=== PATIENT | female | born 1930 | race Caucasian/White ===

== ENCOUNTER 2018-10-02 11:39 | Emergency (ER) | payer MEDICARE, OTHER ==
[~2018-10-02] VITALS: Ht 167.6 cm; Wt 59.0 kg
[2018-10-02] MEDS ORDERED: ONDANSETRON HCL INJ 2MG/ML 2ML 2 MG/ML VIAL IV STA (12:05)
[2018-10-02] MEDS ORDERED: MORPHINE SULFATE 5 MG/ML VIAL IV ONE (12:15)
[2018-10-02] MEDS ORDERED: MORPHINE SULFATE INJ 4 MG/ML INJ 1ML IV NR (12:15)
[2018-10-02 13:09] LABS: BASOPHILS % 0.5 % (0.0-1.0); EOSINOPHILS # (AUTO) 0.1 (0.0-0.4); EOSINOPHILS % 0.9 % (0.0-6.0); HEMATOCRIT 43.3 % (34.2-44.1); LYMPHOCYTES # (AUTO) 1.5 (1.0-3.2); LYMPHOCYTES % 22.2 % (18.0-39.1); MEAN CORPUSCULAR HEMOGLOBIN 30.7 pg (28-32); MEAN CORPUSCULAR HGB CONC 32.3 g/dL (31-35); MONOCYTES # (AUTO) 0.6 (0.2-0.8); MONOCYTES % 9.4 % (4.4-11.3); NEUTROPHILS # (AUTO) 4.4 (2.1-6.9); NEUTROPHILS % 66.7 % (38.7-80.0); PLATELET COUNT 281 x10e3/uL (140-360); RED BLOOD COUNT 4.56 x10e6/uL (3.6-5.1); RED CELL DISTRIBUTION WIDTH 12.2 % (11.7-14.4)
[2018-10-02 13:13] LABS: CLARITY,URINE CLEAR (CLEAR); COLOR,URINE YELLOW (YELLOW); LEUKOCYTE ESTERASE ,URINE NEGATIVE (NEGATIVE); NITRITE,URINE NEGATIVE (NEGATIVE); PROTEIN,URINE DIPSTICK NEGATIVE (NEGATIVE)
[2018-10-02 13:14] LABS: BILIRUBIN,URINE NEGATIVE (NEGATIVE); KETONES,URINE NEGATIVE (NEGATIVE); URINE UROBILINOGEN 0.2 mg/dL (0.2 - 1)
[2018-10-02 13:25] LABS: INR 0.87; PARTIAL THROMBOPLASTIN TIME 27.5 seconds (23.8-35.5); PROTHROMBIN TIME 12.3 seconds (11.9-14.5)
[2018-10-02 13:27] LABS: RBC,URINE 0-5 /HPF (0-5); WBC,URINE (MAN) 0-5 /HPF (0-5)
[2018-10-02 13:28] LABS: AMORPHOUS SEDIMENT,URINE MODERATE (FEW); BACTERIA,URINE MODERATE /HPF; EPITHELIAL CELLS,URINE RARE /LPF
[2018-10-02 13:31] LABS: ALBUMIN 3.7 g/dL (3.5-5.0); ALBUMIN/GLOBULIN RATIO 1.2 (0.8-2.0); ANION GAP 12.4 mmol/L (8-16); CALCIUM 10.8 mg/dL (8.4-10.2); CREATININE, SERUM 1.07 mg/dL (0.57-1.11); MAGNESIUM 2.3 MG/DL (1.3-2.1); POTASSIUM 4.4 mmol/L (3.5-5.1)
[2018-10-02 13:37] LABS: CREATINE KINASE MB 1.1 ng/mL (0-5.0)
[2018-10-02] MEDS ORDERED: ARICEPT5 MG PO (13:38)
[2018-10-02] MEDS ORDERED: AMLODIPINE BESYL5 MG PO (13:38)
[2018-10-02] MEDS ORDERED: ASPIR 8181 MG (13:38)
[2018-10-02] MEDS ORDERED: NAMENDA10 MG PO (13:38)
[2018-10-02] MEDS ORDERED: CALTRATE 600 W1 EACH (13:38)
[2018-10-02] MEDS ORDERED: MULTI-VITAMIN1 EACH (13:38)
[2018-10-02] MEDS ORDERED: VAYACOG CAPSUL1 EACH PO (13:38)
[2018-10-02] MEDS ORDERED: SYNTHROID50 MCG PO (13:38)
[2018-10-02] MEDS ORDERED: CRESTOR10 MG PO (13:38)
[2018-10-02] MEDS ORDERED: PLAVIX75 MG PO (13:38)
--- NOTE | 2018-10-02 14:12 | Diagnostic Imaging Report ---
EXAMINATION: Head and cervical spine CT without contrast. HISTORY: Status post fall, patient on Plavix, trauma COMPARISON: Head CT 10/15/2014 report TECHNIQUE: Multidetector axial images were obtained without contrast from the foramen magnum to the vertex and through the cervical spine. The images were reconstructed using brain and bone algorithms. Thin section brain images were reformatted into coronal and sagittal planes. Dose modulation, iterative reconstruction, and/or weight based adjustment of the mA/kV was utilized to reduce the radiation dose to as low as reasonably achievable. HEAD CT FINDINGS: Skull: No lytic or blastic lesions. No fractures. Parenchyma: Persistent periventricular and sal[place] radiata matter hypodensities, most likely nonspecific chronic microvascular ischemic changes. No mass, hemorrhage or CT evidence of acute vascular insult. Brain volume: Generalized volume loss, with particular prominence of the parietal sulci, bilateral temporal horns and bilateral hippocampal atrophy, which can be seen in patient's with Alzheimer's disease in the correct clinical setting. Ventricles: No hydrocephalus or displacement. Arteries: No density suggestive of thrombus. Dural sinuses: No abnormal density. Extra-axial spaces: No abnormal density. Foramen magnum: No mass, Chiari malformation, or basilar invagination. Sella: No obvious mass. Paranasal/mastoid sinuses: Imaged portions unremarkable. CERVICAL SPINE CT FINDINGS: Alignment:Normal alignment and lordosis. Soft tissues: Normal. Vertebrae: Normal height and density. No acute fracture, infection or neoplasm. Degenerative changes: C1-C2: Normal C2-C3: Uncovertebral and facet arthrosis. Mild right foraminal stenoses. C3-C4: Disc osteophyte formation, bilateral uncovertebral and facet arthrosis. Mild right and moderately severe left foraminal stenosis. C4-C5: Disc osteophyte formation, uncovertebral and facet arthrosis. Severe right and moderate left foraminal stenosis. C5-C6: Symmetrical left disc osteophyte, uncovertebral and facet arthrosis. Severe left and moderately severe right foraminal stenosis C6-C7: Disc osteophyte complex formation, uncovertebral arthrosis. No significant stenoses. C7-T1: Normal IMPRESSION: Head CT: 1. No acute postraumatic intracranial hemorrhage. 2. Mild chronic microvascular ischemic changes. 3. Parenchymal volume loss with mild medial temporal predominance as detailed above. Cervical spine CT: 1. No acute fractures or dislocations. 2. Chronic degenerative changes as described. Note: Acute post traumatic spinal cord, vascular or ligamentous injury cannot adequately be assessed with CT. Signed by: Dr. Belkis Jewell M.D. on 10/02/2018 2:09 PM
--- NOTE | 2018-10-02 14:13 | Diagnostic Imaging Report ---
Exam: Right hip radiographs-2 views; left hip radiographs-2 views; AP radiograph of the pelvis-single view History: Status post fall. Comparison: None. Findings: There is diffuse osteopenia. No evidence of acute fracture, malalignment, or soft tissue abnormality. Bowel gas partially obscures visualization of the sacrum. There are mild degenerative changes of bilateral hips without acute osseous abnormality. Impression: No acute radiographic abnormality. Mild bilateral hip osteoarthritis. Signed by: Dr. Oskar Alanis MD on 10/02/2018 2:09 PM
--- NOTE | 2018-10-02 14:16 | Diagnostic Imaging Report ---
EXAMINATION: CHEST SINGLE (NOT PORTABLE) INDICATION: Status post fall. COMPARISON: None FINDINGS: TUBES and LINES: None. LUNGS: Lungs are well inflated. There is no evidence of pneumonia or pulmonary edema. There is a calcified granuloma in the left lower lung. PLEURA: No pleural effusion or pneumothorax. HEART AND MEDIASTINUM: The cardiomediastinal silhouette is unremarkable. BONES AND SOFT TISSUES: No acute osseous abnormality. Degenerative changes of bilateral shoulders. Superior subluxation of bilateral humeral heads in relation to the glenoids could reflect rotator cuff pathology. UPPER ABDOMEN: No free air under the diaphragm. IMPRESSION: No acute radiographic abnormality. Signed by: Dr. Oskar Alanis MD on 10/02/2018 2:12 PM
[2018-10-02 15:09] VITALS: BP 148/62
== END 2018-10-02 15:39 | disposition home or self-care (01) ==
LOC: ER 11:39
DX: M54.5 Low back pain (principal); M25.552 Pain in left hip; M25.551 Pain in right hip; W01.0XXA Fall on same level from slipping, tripping and stumbling without subsequent striking against object, initial encounter; Y92.008 Other place in unspecified non-institutional (private) residence as the place of occurrence of the external cause; F03.90 Unspecified dementia, unspecified severity, without behavioral disturbance, psychotic disturbance, mood disturbance, and anxiety; I10 Essential (primary) hypertension; E11.9 Type 2 diabetes mellitus without complications; E03.9 Hypothyroidism, unspecified; I25.10 Atherosclerotic heart disease of native coronary artery without angina pectoris
CPT/HCPCS: 36415; 70450; 71045; 72125; 73522; 80053; 81001; 82550; 82553; 83605; 83735; 84484; 85025; 85610; 85730; 87040; 87086; 93005; 99284

== ENCOUNTER 2019-09-12 12:22 | Observation (INO) | payer MEDICARE ==
[~2019-09-12] VITALS: Ht 167.6 cm; Wt 59.0 kg
[~2019-09-12 12:22] MED LIST: AMLODIPINE BESYL5 MG PO; ARICEPT5 MG PO; ASPIR 8181 MG PO; CALTRATE 600 W1 EACH PO; CRESTOR10 MG PO; MULTI-VITAMIN1 EACH PO; NAMENDA10 MG PO; PLAVIX75 MG PO; SYNTHROID50 MCG PO; VAYACOG CAPSUL1 EACH PO
[2019-09-12] MEDS ORDERED: ENOXAPARIN SOD INJ 60 MG/0.6 ML SYR SC ONE (12:30)
[2019-09-12] MEDS ORDERED: ONDANSETRON HCL INJ 2MG/ML 2ML 2 MG/ML VIAL IV PRN ×3 (12:45→13:45)
[2019-09-12] MEDS ORDERED: NITROGLYCERIN 2% OINT 1 GM PKT TOP ONE (12:45)
[2019-09-12 12:49] LABS: BASOPHILS % 0.5 % (0.0-1.0); EOSINOPHILS # (AUTO) 0.1 (0.0-0.4); EOSINOPHILS % 1.4 % (0.0-6.0); HEMATOCRIT 39.2 % (34.2-44.1); HEMOGLOBIN 12.9 g/dL (12.0-16.0); LYMPHOCYTES # (AUTO) 1.6 (1.0-3.2); MEAN CORPUSCULAR HEMOGLOBIN 31.5 pg (28-32); MEAN CORPUSCULAR HGB CONC 32.9 g/dL (31-35); MEAN CORPUSCULAR VOLUME 95.8 fL (81-99); MONOCYTES # (AUTO) 0.6 (0.2-0.8); NEUTROPHILS # (AUTO) 4.2 (2.1-6.9); NEUTROPHILS % 63.8 % (38.7-80.0); PLATELET COUNT 278 x10e3/uL (140-360); RED BLOOD COUNT 4.09 x10e6/uL (3.6-5.1); RED CELL DISTRIBUTION WIDTH 12.6 % (11.7-14.4)
--- NOTE | 2019-09-12 12:59 | Diagnostic Imaging Report ---
EXAMINATION: CHEST SINGLE (PORTABLE) INDICATION: Pain. COMPARISON: 08/03/19. FINDINGS: TUBES and LINES: None. LUNGS: Lungs are well inflated. There is no evidence of pneumonia or pulmonary edema. There is a calcified granuloma in the left lung base. PLEURA: No pleural effusion or pneumothorax. HEART AND MEDIASTINUM: Cardiac size is mildly enlarged. There are atherosclerotic calcifications within the aorta. BONES AND SOFT TISSUES: No acute osseous abnormality. Degenerative changes of bilateral shoulders. UPPER ABDOMEN: No free air under the diaphragm. IMPRESSION: Mild cardiomegaly without pulmonary edema. Signed by: Dr. Ashley Hogan M.D. on 09/12/2019 12:56 PM
[2019-09-12] MEDS ORDERED: ASPIRIN 325 MG TAB PO ONE (13:00)
[2019-09-12] MEDS ORDERED: ACETAMINOPHEN 325 MG TAB PO ONE (13:00)
[2019-09-12] MEDS ORDERED: FAMOTIDINE 20 MG/2 ML VIAL IV ONE (13:00)
[2019-09-12 13:08] LABS: ALBUMIN 3.6 g/dL (3.5-5.0); ALBUMIN/GLOBULIN RATIO 1.3 (0.8-2.0); ANION GAP 13.7 mmol/L (8-16); CREATININE, SERUM 1.07 mg/dL (0.57-1.11); POTASSIUM 3.7 mmol/L (3.5-5.1)
[2019-09-12 13:19] LABS: CREATINE KINASE MB 1.1 ng/mL (0-5.0)
[2019-09-12] MEDS ORDERED: LACTATED RINGER'S 1,000 ML IV SCH (13:41)
[2019-09-12] MEDS ORDERED: ZOLPIDEM TARTRATE 5 MG TAB PO PRN (13:45)
[2019-09-12] MEDS ORDERED: ENALAPRILAT IV INJ 1.25 MG/ML VIAL IV PRN (13:45)
[2019-09-12] MEDS ORDERED: MORPHINE SULFATE 2 MG/ML SYR 1ML IV PRN (13:45)
[2019-09-12] MEDS ORDERED: DIPHENHYDRAMINE HCL INJ 50 MG/ML VIAL IV PRN (13:45)
[2019-09-12] MEDS ORDERED: ACETAMINOPHEN 325 MG TAB PO PRN (13:45)
[2019-09-12] MEDS: FAMOTIDINE 20 MG/2 ML VIAL IV SCH (14:27)
[2019-09-12] MEDS: METOPROLOL TARTRATE 25 MG TAB PO SCH ×2 (15:27→23:33)
[2019-09-12] MEDS ORDERED: FAMOTIDINE 20 MG/2 ML VIAL IV SCH (17:00)
[2019-09-12] MEDS: NITROGLYCERIN 2% OINT 1 GM PKT TOP SCH ×2 (18:35→23:33)
--- NOTE | 2019-09-12 18:51 | NUR ---
PT ARTRIVED TO FLOOR BY STRETCHER. PT IS AAOX1, RR EVEN AND NON-LABORED, ON ROOM AIR. NO S/SX OF DISTRESS NOTED. PT TRANSFERED TO HOSPITAL BED. ORIENTED PT TO ROOM, PMC, AND CALL LIGHT. FAMILY AT BEDSIDE. LEFT PT LAYING SEMI FOWLERS IN BED, BED IN LOW LOCKED POSITION, SIDE RAILS UPX2, CALL LIGHT AND PHONE WITHIN REACH. BED ALARM ACTIVATED ZONE 1.
--- NOTE | 2019-09-12 19:30 | NUR ---
ALERTED TO PATIENT ROOM BY BED ALARM SOUNDING. PT STANDING AT SIDE OF BED WITH FAMILY AT SIDE REQUESTING HELP TO BATHROOM. PT ASSISTED TO BATHROOM. SHORT SHUFFLING GAIT NOTED. PT UNSTEADY ON FEET. DEPUTY CLERK PROVIDED WALKER. PT ASSISTED TO WALK BACK TO BED WITH WALKER. LEFT PT LAYING SEMI FOWLERS IN BED, BED IN LOW LOCKED POSITION, SIDE RAILS UPX2, CALL LIGHT AND PHONE WITHIN REACH. BED ALARM ACTIVATED.
[2019-09-12] MEDS ORDERED: RISPERIDONE0.5 MG PO (20:04)
[2019-09-12] MEDS ORDERED: COLACE100 MG PO (20:04)
--- NOTE | 2019-09-12 20:06 | NUR ---
SPOKE WITH MD JESUS CONCERNING PT HOME MEDICATIONS AND PATIENTS FAMILY REFUSING NITROBID AND METOPROLOL. NEW ORDERS RECEIVED FOR HOME MEDICATIONS.
[2019-09-12 20:09] VITALS: BP 136/78
[2019-09-12 20:22] VITALS: BP 136/78
[2019-09-12 20:38] VITALS: BP 136/78
[2019-09-12] MEDS: MEMANTINE 10 MG TAB PO SCH (20:42)
[2019-09-12] MEDS ORDERED: NON-FORMULARY MEDICATION (Calcium Carbonate/Vitamin D3 (Caltrate 600 W-D Tablet) 1 TAB) PO SCH (21:00)
[2019-09-12] MEDS ORDERED: SIMVASTATIN 40 MG TAB PO SCH (21:00)
[2019-09-12] MEDS ORDERED: OYST-CAL-D 500MG TABLET PO SCH (21:00)
[2019-09-12] MEDS ORDERED: CLOPIDOGREL BISULFATE 75 MG TAB PO SCH (21:00)
[2019-09-12] MEDS ORDERED: RISPERIDONE 0.5 MG TAB PO SCH (21:00)
[2019-09-12 21:46] LABS: CREATINE KINASE 33 IU/L (29-168)
[2019-09-13] VITALS: BP 160/69
[2019-09-13] MEDS: FAMOTIDINE 20 MG/2 ML VIAL IV SCH ×2 (02:04→13:52)
[2019-09-13 04:00] VITALS: BP 146/66
[2019-09-13] MEDS: NITROGLYCERIN 2% OINT 1 GM PKT TOP SCH ×2 (05:27→11:54)
[2019-09-13] MEDS ORDERED: LEVOTHYROXINE SODIUM 50 MCG TAB PO SCH (06:00)
[2019-09-13 06:30] LABS: CREATINE KINASE 29 IU/L (29-168)
--- NOTE | 2019-09-13 07:00 | NUR ---
RECEIVED PATIENT AWAKE RESTING IN BED, NO S/S OF DISTRESS. BED LOW, WHEELS LOCKED, SIDE RAILS X2. CALL LIGHT IN REACH WILL CONTINUE TO MONITOR PATIENT.
[2019-09-13 07:15] LABS: CHOL/HDL RATIO 2.6 (3.0-3.6)
[2019-09-13 07:58] VITALS: BP 144/65
[2019-09-13] MEDS: MEMANTINE 10 MG TAB PO SCH (08:24)
[2019-09-13 08:25] VITALS: BP 144/65
[2019-09-13] MEDS ORDERED: DONEPEZIL HCL 5 MG TAB PO SCH (09:00)
[2019-09-13] MEDS ORDERED: AMLODIPINE BESYLATE 5 MG TAB PO SCH (09:00)
[2019-09-13] MEDS ORDERED: ASPIRIN 81 MG CHEW TAB PO SCH (09:00)
[2019-09-13] MEDS ORDERED: ASPIRIN 325 MG TAB EC PO SCH (09:00)
[2019-09-13] MEDS ORDERED: MULTIVITAMINS/MINERALS TAB PO SCH (09:00)
[2019-09-13] MEDS ORDERED: DOCUSATE SODIUM 100 MG CAP PO SCH (09:00)
[2019-09-13] MEDS ORDERED: LISINOPRIL 10 MG TAB PO SCH (09:00)
[2019-09-13 11:29] VITALS: BP 133/63
[2019-09-13] MEDS ORDERED: ONDANSETRON HCL 4 MG ORAL DISINTEGRATING TAB PO PRN (11:45)
--- NOTE | 2019-09-13 12:38 | History and Physical ---
CHIEF COMPLAINT: This is an 89-year-old lady, who comes in with chest pain. HISTORY OF PRESENTING ILLNESS: An 89-year-old female with a history of dementia, who is a resident of a detention with assisted living with memory care, who was in usual state of health until yesterday. Family was visiting the patient and the patient started to have some chest pain and some shortness of breath. The patient was given some water and after this, the patient had more chest pain and more shortness of breath. Came into the emergency room, was admitted to the hospital for chest pain, rule out acute coronary syndrome. The patient has a history of CAD and hypertension. PAST MEDICAL HISTORY: History of hypertension, history of CAD, history of dementia, history of hypothyroidism and history of hyperlipidemia. MEDICATIONS: She takes at home are amlodipine 5 mg daily, aspirin 81 mg daily, clopidogrel 75 mg daily, Colace 100 mg daily, donepezil 5 mg daily, levothyroxine 50 mcg daily, Namenda 10 mg daily, risperidone 0.5 mg daily, Rosuvastatin 10 mg daily. FAMILY HISTORY: Daughter with history of pacemaker and AICD, history of dementia in sister and brother, history of diabetes in daughter and also cardiomyopathy in mother and father with acute myocardial infarction. PAST SURGICAL HISTORY: History of stents in the LAD. SOCIAL HISTORY: No EtOH. No IV drug abuse and no history of smoking. Lives in a detention setting. REVIEW OF SYSTEMS: Positive for chest pain. Positive for shortness of breath. No nausea. No vomiting. No diarrhea. No constipation. No rectal bleeding. No hematochezia. No hematemesis. No diplopia. No blurry vision. No headaches. No hyperesthesias. No paresthesias. No skin conditions. No hematuria or dysuria. PHYSICAL EXAMINATION: VITAL SIGNS: Temperature is 97.7, pulse 57, respirations 18, blood pressure remain in the 146/66, pulse oximeter of 98%. HEENT: Normocephalic, atraumatic. Pupils are reactive to light and accommodation. CVS: S1-S2 normal. Regular rate and rhythm. ABDOMEN: Nontender, nondistended. EXTREMITIES: No clubbing, no cyanosis, no edema. NEUROLOGIC: Alert and oriented x1. No focal deficits noted. Moves all limbs. Reflexes are normal. LABORATORY VALUES: Initial white count of 6.53, hemoglobin 12.9, hematocrit of 39.2. Chemistry shows sodium of 145, potassium of 3.7, BUN of 20, and creatinine of 1.07, EGFR of 49. Sodium is 145, potassium is 3.7, BUN of 20, creatinine of 1.07. The patient's CK, CK-MB and troponin have been trended to be negative less than 0.01 and lipids are not been done. ASSESSMENT: Ms. Zion Mckoy with: 1. Chest pain. 2. History of coronary artery disease. 3. History of hypertension. 4. History of hyperlipidemia. 5. History of dementia. PLAN: Check lipids today. Echocardiogram will be ordered if needed. Cardiology consult will be done depending on the echo. Further recommendation per clinical course. We will continue to monitor the patient. Disposition and plan again will be to discharge possibly today or tomorrow depending on the outcome of results. MD EDU Mitchell/MODL /[id number]
[2019-09-13] MEDS: METOPROLOL TARTRATE 25 MG TAB PO SCH (13:45)
--- NOTE | 2019-09-13 14:49 | NUR ---
DR. CHRISTOPHER ROUNDING ON PATIENT. PATIENT OK TO DISCHARGE HOME.
--- NOTE | 2019-09-13 14:50 | NUR ---
SPOKE WITH DR. CURRIE, ECHO RESULTS GIVEN. PATIENT OK TO DISCHARGE HOME.
--- NOTE | 2019-09-13 15:45 | NUR ---
REMOVED PATIENTS IV. CATHETER TIP INTACT AND PRESSURE DRESSING APPLIED.
--- NOTE | 2019-09-13 16:25 | NUR ---
PATIENT DISCHARGED FROM FACILITY. PATIENT GATHERED ALL PERSONAL BELONGINGS, DISCHARGE INSTRUCTIONS, AND FOLLOW UP INFORMATION. PATIENT LEFT UNIT IN WHEELCHAIR AND WENT HOME VIA PRIVATE AUTO. NO SIGNS OF DISTRESS WHEN LEAVING FACILITY.
[2019-09-13 16:38] VITALS: BP 153/76
--- NOTE | 2019-09-13 23:09 | Consultation ---
DATE OF CONSULTATION: 09/13/2019 Cardiology Consultation Note REASON FOR CONSULTATION: Chest pain. CHIEF COMPLAINT: Could not be obtained due to altered mentation. HISTORY OF PRESENT ILLNESS: The patient is an 89-year-old female with history of coronary artery disease, status post NC and PCI many years ago. She has advanced dementia with memory issues. She is a resident of a long term with assisted living with memory care, who was brought in for evaluation for chest pain and shortness of breath lasting about 90 minutes yesterday even. History is provided by the and he says that the patient complains about chest pain in upper part of her chest as well as left shoulder pain. She has also been experiencing some hallucinations as well as episodes of anxiety attacks recently due to the memory problems. She is followed by outpatient cuff setter overlock, at [facility] and had a normal echocardiogram several months ago. Otherwise, no stress testing or cath could be done in the last few years given her dementia. PAST MEDICAL HISTORY: 1. Hypertension. 2. CAD. 3. Dementia. 4. Hypothyroidism. FAMILY HISTORY: Noncontributory. PAST SURGICAL HISTORY: History of stent. SOCIAL HISTORY: Does not smoke, drink, or abuse drugs. REVIEW OF SYSTEMS: Could not be completed due to confusion and sleepiness. MEDICATIONS: Outpatient medications reviewed. Inpatient medications reviewed. ALLERGIES: NO KNOWN DRUG ALLERGIES. OBJECTIVE: VITAL SIGNS: Temperature afebrile, pulse 65, respiratory rate 18, blood pressure 133/63, and saturating 96% on room air. GENERAL: Thin elderly female, in no acute distress. CARDIOVASCULAR: Regular rate and rhythm. No murmurs, rubs, or gallops. LUNGS: Clear to auscultation anteriorly. ABDOMEN: Soft, nontender, and nondistended. NEURO AND PSYCH: Disoriented. EXTREMITIES: No edema. Warm, well perfused. No ulceration. LABORATORY DATA: Reviewed. Troponins negative x3. IMAGING DATA: Reviewed. Chest x-ray shows mild cardiomegaly without pulmonary edema. Echocardiogram reviewed, shows normal LV function. ASSESSMENT: 1. Chest pain. 2. History of coronary artery disease, status post stent. 3. Hypertension. 4. Dementia. PLAN: Discussed with the family at bedside. Given patient's advanced dementia, we will plan to just treat medically. The and the son are in agreement. The patient is not a good candidate for catheterization. She is already being ruled out for acute NC. Echocardiogram showed relatively preserved LV function. No acute ST changes on EKG. Given these findings, the patient is okay to be discharged from cardiovascular standpoint without further workup. She can follow up with her outpatient cuff setter overlock, in next 1-2 weeks. Thank you for this consult. We will continue to follow. MD BRENDAN Gibbs/MODL /[id number]
== END 2019-09-13 16:25 | disposition home or self-care (01) ==
LOC: ER 12:22 → INTOOBSV 13:41 → ERHOLD 13:41 → MED/SURG 18:55
PROVIDERS: ADMIT Family Medicine; ATTEND Family Medicine
DX: R07.9 Chest pain, unspecified (principal); I10 Essential (primary) hypertension; F03.90 Unspecified dementia, unspecified severity, without behavioral disturbance, psychotic disturbance, mood disturbance, and anxiety; E03.9 Hypothyroidism, unspecified; I25.10 Atherosclerotic heart disease of native coronary artery without angina pectoris; Z95.5 Presence of coronary angioplasty implant and graft
CPT/HCPCS: 36415 ×2; 71045; 80053; 80061; 82550 ×2; 82553 ×2; 83880; 84484 ×2; 85025; 93005; 93306; 99284; G0378 ×2; J7121; J1650